=== PATIENT | male | born 1940 | race Caucasian/White ===

== ENCOUNTER 2019-06-20 15:37 | Outpatient (RCR) | payer MEDICAID, SELFPAY | END 2019-06-20 23:59 | disposition home or self-care (01) | LOC: ANHAUDIO 15:37 | DX: Z46.1 Encounter for fitting and adjustment of hearing aid (principal) | CPT/HCPCS: 99199 ==

== ENCOUNTER 2020-09-10 10:24 | Outpatient (RCR) | payer MEDICAID, SELFPAY | END 2020-09-10 23:59 | disposition home or self-care (01) | LOC: ANHAUDIO 10:24 | DX: Z46.1 Encounter for fitting and adjustment of hearing aid (principal) | CPT/HCPCS: 99199 ==

== ENCOUNTER 2023-08-18 06:31 | Outpatient (RCR) | payer MEDICARE, MEDICAID, SELFPAY | END 2023-08-18 23:59 | disposition home or self-care (01) | LOC: ANHAUDIO 06:31 | DX: Z46.1 Encounter for fitting and adjustment of hearing aid (principal) | CPT/HCPCS: 99199 ==